=== PATIENT | female | born 1985 | race Caucasian/White ===

== ENCOUNTER 2017-06-14 10:05 | Emergency (ER) | payer OTHER ==
[~2017-06-14] VITALS: Ht 170.2 cm; Wt 94.1 kg
[~2017-06-14 10:05] MED LIST: EFF75 PO; KLN1X PO; MULT-506 PO; WLLSR150 PO
[2017-06-14 10:16] VITALS: Ht 170.2 cm; Wt 94.1 kg
[2017-06-14] MEDS ORDERED: ACETAMINOPHEN 500 MG TAB PO STA (10:38)
[2017-06-14] MEDS ORDERED: AZITHROMYCIN 250 MG TAB PO ONE (10:45)
--- NOTE | 2017-06-14 11:16 | DIAGNOSTIC IMAGING REPORT ---
CHEST ONE VIEW PORTABLE CLINICAL HISTORY: CHEST PAIN dyspnea COMPARISON STUDY: 09/23/2011 FINDINGS: The bones soft tissues and hemidiaphragms are normal. The cardiomediastinal silhouette is normal. The lungs are clear. The pulmonary vasculature is normal. IMPRESSION: Negative chest. The above report was generated using voice recognition software. It may contain grammatical, syntax or spelling errors. Electronically signed by: Mike Sanderson M.D. 06/14/2017 11:15 AM Dictated Date/Time: 06/14/2017 11:15 AM
--- NOTE | 2017-06-14 11:30 | EMERGENCY ROOM VISIT NOTE ---
History Report prepared by Ellis: Alise Macias Under the Supervision of: Dr. Jensen Gallagher M.D. First contact with patient: 10:24 Chief Complaint: COUGH Stated Complaint: PERTUSSIS History of Present Illness The patient is a 31 year old female who presents to the Emergency Room with complaints of an intermittent cough for the past 3 days. The patient's son has been sick with similar symptoms. He was seen in the ER at [facility] 4 days ago. Today the patient received a phone call that he had tested positive for pertussis. She was instructed to remove all of her children from school and have them evaluated. The patient states that she has had an intermittent, non- productive cough for the past 3 days. She reports burning and stinging pain in her lungs, even when she is not coughing. She used her son's nebulizer this morning and that helped to alleviate some of her discomfort. She rates her current pain as a 6/10 in severity. The patient has history of asthma. She is currently experiencing a fever, headache, and sore throat. She feels dehydrated. She was never immunized for pertussis because she was allergic to the vaccination. All of her children have been immunized. The patient denies vomiting, diarrhea, and chance of . Source of History: patient Onset: 3 days ago Position: chest (respiratory) Symptom Intensity: 6/10 Quality: other (non-productive cough) Timing: intermittent Modifying Factors (Relieving): other (nebulizer) Associated Symptoms: + fevers, + headache, + sorethroat, No vomiting, No diarrhea Review of Systems See HPI for pertinent positives & negatives. A total of 10 systems reviewed and were otherwise negative. Past Medical & Surgical Medical Problems: (1) Asthma (2) Bronchitis (3) CVA (4) Migraine Old medical records were reviewed. Nurse's notes were reviewed and I agree with. Family History No pertinent history stated. Social History Smoking Status: Former Smoker Alcohol Use: none Drug Use: none Marital Status: Housing Status: lives with family Occupation Status: unemployed Current/Historical Medications Scheduled Azithromycin (Zithromax Z-Jamey), 0 PO UD Bupropion HCl (Bupropion HCl Sr), 150 MG PO BID Clonazepam (Clonazepam), 1 MG PO BID Methylprednisolone (Medrol Dosepak), 0 PO DAILY Multivitamin (Multivitamin), 1 TAB PO QAM Venlafaxine Hcl (Effexor), 75 MG PO BID Allergies Coded Allergies: Cinnamedrine (Verified Allergy, Unknown, HIVES, runny eyes, 05/03/16) Physical Exam Vital Signs Date Time Temp Pulse Resp B/P (MAP) Pulse Ox O2 Delivery O2 Flow Rate FiO2 06/14/17 12:00 37.4 86 22 130/87 98 06/14/17 10:26 97 Room Air 06/14/17 10:16 37.9 92 20 126/91 98 Room Air Physical Exam General: Well developed well nourished non toxic, mildly ill appearing young female with an occasional cough, in no acute distress, breathing comfortably on room air. Normal speech HEENT: Normal cephalic atraumatic. Pupils are equal round and reactive to light. Extraocular movements are intact. Oropharynx is pink with moist mucous membranes. No swelling of the mouth lips or tongue. Neck: Supple with a midline trachea. No meningeal signs or stiffness, no JVD or bruits. No Stridor. Chest: Coarse breath sounds bilaterally. No wheezes or rhonchi. No increased work of breathing. Heart: regular rate and rhythm. Abdomen: Soft nontender, nondistended without rebound guarding or rigidity. Extremities: No cyanosis clubbing or edema. No calf tenderness or assymetry Spine/Back. Non tender to palpation. No CVA tenderness Skin: Good turgor without rashes. Mildly diaphoretic and warm. Neurologic exam: Cranial nerves two through 12 are intact. Motor and sensation are intact and symmetrical throughout. Medical Decision & Procedures ER Provider Diagnostic Interpretation: Radiology results as stated below per my review and radiologist interpretation: CHEST ONE VIEW PORTABLE CLINICAL HISTORY: CHEST PAIN dyspnea COMPARISON STUDY: 09/23/2011 FINDINGS: The bones soft tissues and hemidiaphragms are normal. The cardiomediastinal silhouette is normal. The lungs are clear. The pulmonary vasculature is normal. IMPRESSION: Negative chest. The above report was generated using voice recognition software. It may contain grammatical, syntax or spelling errors. Electronically signed by: Mike Sanderson M.D. 06/14/2017 11:15 AM Dictated Date/Time: 06/14/2017 11:15 AM Medications Administered Medications (Trade) Dose Ordered Sig/Neida Route Start Time Stop Time Status Last Admin Dose Admin Acetaminophen (Tylenol Tab) 1,000 mg NOW STAT PO 06/14/17 10:38 06/14/17 10:40 DC 06/14/17 11:10 1,000 MG Azithromycin (Zithromax Tab) 500 mg NOW ONCE PO 06/14/17 10:45 06/14/17 10:46 DC 06/14/17 11:10 500 MG ED Course 1024: Past medical records reviewed. The patient was evaluated in room C1B, and a complete history and physical examination were performed. 1038: Tylenol 1000 mg PO 1045: Azithromycin 500 mg PO 1140: I reassessed the patient at this time. She is feeling better and resting comfortably. I discussed the results and treatment plan with the patient. I answered all pertaining questions that she had. She expressed understanding and verbalized agreement. The patient will be discharged home. Medical Decision Differential diagnoses includes pertussis, pneumonia, bronchitis, asthma exacerbation, cardiac disease. This patient comes in as described above. She's had a cough and bronchitis/URI type symptoms this may be exacerbating her asthma. Her breath sounds slightly coarse. She does feel warm she was given acetaminophen by mouth . Chest x-ray was clear and does not show any infiltrates . She's not hypoxemic. Her son is being treated for pertussis. I will treat her with azithromycin to cover pertussis as well. She was also given a prescription for a Medrol Dosepak that will help with her asthma and she has albuterol nebulizer that she can use at home. She feels comfortable like to go home. She does likely have pertussis and should stay home until she completes antibiotic course and feeling well. She was happy with plan and discharged to home. She should follow-up with her regular doctor this week for recheck if symptoms worsen or she is not any better. Medication Reconcilliation Current Medication List: was personally reviewed by me Blood Pressure Screening Patient's blood pressure: Normal blood pressure Impression Primary Impression: Pertussis Additional Impressions: Asthma Acute bronchitis Scribe Attestation The scribe's documentation has been prepared under my direction and personally reviewed by me in its entirety. I confirm that the note above accurately reflects all work, treatment, procedures, and medical decision making performed by me. Departure Information Dispostion Home / Self-Care Prescriptions Methylprednisolone (MEDROL DOSEPAK) 4 Mg Jamey 0 PO DAILY, #1 PKT Prov: Jensen Gallagher M.D. 06/14/17 Azithromycin (ZITHROMAX Z-JAMEY) 250 Mg Tab 0 PO UD, #1 PKT Prov: Jensen Gallagher M.D. 06/14/17 Referrals No Doctor, Assigned (PCP) Forms HOME CARE DOCUMENTATION FORM, IMPORTANT VISIT INFORMATION Patient Instructions My [facility] Additional Instructions Rest. Use albuterol nebulizer at home if needed for your asthma Use Medrol Dosepak as directed steroid Use azithromycin as directedantibiotic Stay at home and limit year exposure to others until you complete your antibiotic course and feeling better Return to ER if: Worsening symptoms, any new problems or concerns. Problem Qualifiers
[2017-06-14] MEDS ORDERED: AZITTAB PO (11:43)
[2017-06-14] MEDS ORDERED: METH4PAK PO (11:43)
[2017-06-14 12:00] VITALS: BP 130/87; PULSE 86; TEMP 37.4; O2SAT 98
== END 2017-06-14 12:02 | disposition home or self-care (01) ==
LOC: C.EDB 10:11 → C.EDC 12:02
DX: A37.90 Whooping cough, unspecified species without pneumonia (principal); J45.909 Unspecified asthma, uncomplicated; J20.9 Acute bronchitis, unspecified; Z86.73 Personal history of transient ischemic attack (TIA), and cerebral infarction without residual deficits; Z87.891 Personal history of nicotine dependence; Z79.899 Other long term (current) drug therapy

== ENCOUNTER 2017-09-25 17:34 | Observation (INO) | payer OTHER ==
[~2017-09-25] VITALS: Ht 170.2 cm; Wt 93.3 kg
[2017-09-25] MEDS ORDERED: ONDANSETRON INJ 2 MG/ML 2 ML VIAL IV STA ×2 (18:15→19:50)
[2017-09-25] MEDS ORDERED: HYDROmorphone INJ 1 MG/ML SYR IV STA (18:15)
[2017-09-25 18:46] LABS: BASO % 0.4 %; BASO ABS # 0.05 K/uL (0-0.2); EOS ABS # 0.13 K/uL (0-0.5); HEMATOCRIT 39.5 % (37-47); HEMOGLOBIN 13.4 g/dL (12.0-16.0); IG# 0.04 K/uL (0.00-0.02); LYMPH % 27.8 %; LYMPH ABS # 3.55 K/uL (1.2-3.4); MEAN CELL VOLUME 83.9 fL (80-100); MEAN CORPUSCULAR HEMOGLOBIN 28.5 pg (25-34); MEAN CORPUSCULAR HGB CONC 33.9 g/dl (32-36); MEAN PLATELET VOLUME 9.3 fL (7.4-10.4); MONO % 6.5 %; MONO ABS # 0.83 K/uL (0.11-0.59); NEUT ABS # 8.19 K/uL (1.4-6.5); PLATELET COUNT 352 K/uL (130-400); RED CELL DISTRIBUTION WIDTH SD 39.3 fL (36.4-46.3); WHITE BLOOD COUNT 12.79 K/uL (4.8-10.8)
[2017-09-25] MEDS ORDERED: CLONAZEPAM 0.5 MG TAB PO STA (19:32)
--- NOTE | 2017-09-25 21:19 | DIAGNOSTIC IMAGING REPORT ---
MRI OF THE LUMBAR SPINE WITHOUT CONTRAST CLINICAL HISTORY: Severe lumbar pain with bilateral radiculopathy. COMPARISON STUDY: Lumbar spine MRI April 19, 2016. TECHNIQUE: Utilizing a 1.5 Kari magnet and dedicated coil, multiplanar, multiecho imaging of the lumbar spine was performed without IV contrast. FINDINGS: For purposes of numbering on this exam, the L5-S1 disc space is assigned to axial image 28 of 30. Alignment of the lumbar spine is anatomic. Vertebral body heights are maintained. There is no intracanalicular mass or fluid collection. The conus terminates at the upper L2 level. Paravertebral soft tissues are unremarkable. There is evidence for a discectomy at the L5-S1 level as well as a laminectomy at this level. L1-2: The central canal and neural foramen are patent. L2-3: The central canal and neural foramen are patent. L3-4: The central canal and neural foramen are patent. L4-5: The central canal and neural foramen are patent. L5-S1: The patient is status post discectomy and laminectomy at this level. Note is made of a disc bulge with small central disc protrusion. In addition, there is a T2 hyperintense adjacent abnormality within the anterior epidural space that measures 0.9 x 0.4 x 0.8 cm. This suggests disc material. The amount of disc material is greatly diminished when compared to preoperative MRI of April 19, 2016. This is suboptimally assessed on this unenhanced exam. There is mild to moderate narrowing of the central canal and lateral recesses with minimal narrowing of both neural foramen at this level. IMPRESSION: 1. Status post L5-S1 discectomy and laminectomy. Disc bulge at this level with small central disc protrusion and adjacent 9 x 4 x 8 mm T2 hyperintense anterior extradural abnormality. This suggests small recurrent/residual disc extrusion with mild to moderate narrowing of the central canal and lateral recesses. Amount of disc material greatly diminished when compared to preoperative MRI of April 19, 2016. Postsurgical scar could appear similar although is considered less likely. 2. Otherwise, normal MRI of the lumbar spine with no additional disc herniations. Electronically signed by: Gabriele Min M.D. 09/25/2017 9:18 PM Dictated Date/Time: 09/25/2017 9:07 PM
[2017-09-25] MEDS ORDERED: HYDROmorphone INJ 0.5 MG/0.5 ML SYR IV STA (21:26)
[2017-09-25 22:21] LABS: ALBUMIN 3.6 gm/dl (3.4-5.0); CALCIUM 9.3 mg/dl (8.5-10.1); CREATININE 0.64 mg/dl (0.60-1.20); POTASSIUM 3.7 mmol/L (3.5-5.1)
[2017-09-25 22:24] LABS: TOTAL PROTEIN 7.7 gm/dl (6.4-8.2)
[2017-09-25] MEDS ORDERED: VENLAFAXINE HCL 50 MG TAB PO ONE (22:40)
[2017-09-25] MEDS ORDERED: BuPROPion SR 150 MG TABCR PO ONE (22:40)
[2017-09-25] MEDS ORDERED: hydrOXYzine HCL 10 MG TAB PO PRN (22:45)
[2017-09-25] MEDS ORDERED: IV FLUIDS COMPLETED PRN (22:45)
[2017-09-25] MEDS ORDERED: MoRPHine SULFATE 4 MG/ML 1 ML CARP\\VIAL IV PRN (22:45)
[2017-09-25] MEDS ORDERED: IBUPROFEN 200 MG TAB PO PRN (22:45)
[2017-09-25] MEDS ORDERED: CYCLOBENZAPRINE HCL 10 MG TAB PO PRN (22:45)
[2017-09-25] MEDS ORDERED: TRAMADOL HCL 50 MG TAB PO PRN (22:45)
[2017-09-25] MEDS ORDERED: KETOROLAC TROMETHAMINE 30 MG/ML VIAL IV PRN (22:45)
[2017-09-25] MEDS ORDERED: PROCHLORPERAZINE INJ 5 MG in SYRINGE 4 ML IV PRN (22:45)
[2017-09-25] MEDS ORDERED: COUGH DROP (SUGAR FREE) LOZ 24 LOZ/1 BOX PO PRN (22:45)
[2017-09-25 23:10] VITALS: BP 120/79; PULSE 66; TEMP 36.4; O2SAT 92; Ht 170.2 cm; Wt 93.3 kg
--- NOTE | 2017-09-25 23:21 | EMERGENCY ROOM VISIT NOTE ---
ED Visit Note First contact with patient: 17:49 Chief Complaint: Back pain and strep throat. History of Present Illness: Ms. Gordon is a 31-year-old white female who ambulates into the ED complaining of severe lumbar back pain and possible strep throat. Historically patient reports in April 2016 she had back surgery; medical records shows that Dr. Montilla performed a L5-S1 discectomy, foraminotomy and laminectomy for a large disc herniation. Patient reports since her surgery in 2015 she has had no complications or recurrence of pain. Patient reports that last week she started developing symptoms of sinus congestion and sore throat. She reports this felt like episodes of streptococcal pharyngitis that she had in the past. These were associated with fevers. She reports her fevers have resolved after the first few days but she is experiencing throat pain. She does not describe or rate her throat pain. She does report it worsens with swallowing. She has not identified any alleviating factors related to the pain. She has not taken medications for pain prior to arrival at the hospital. She denies any voice changes, inability to swallow, painful talking, drooling, neck pain/stiffness, decreased appetite, nausea/vomiting, skin eruptions, skin color changes. Patient goes on the report approximately 3 days ago she started having severe lumbar back pain. She felt this back pain was similar to her previous disc herniation. Since that time her pain has been constant. She places her discomfort throughout the lumbar spine with prominence in the L5-S1 area and the sacroiliac joints. There is prominence on the right. She describes her pain as a sharp sensation. She currently rates her discomfort 8/10. Her pain is radiating into both buttocks and down both posterior aspects of the legs. Her pain worsens with palpation of the lumbar spine, any movement at the waist and positional changes from the standing to the sitting, the sitting to lying positions. Associated with her pain she reports that both legs feel weak and that while walking she feels like she could fall at any time. She denies recent direct or repetitive trauma, thoracic back pain, abdominal pain, nausea, vomiting, diarrhea, constipation, rectal bleeding, black/tarry stools, urinary symptoms, hematuria, bowel and bladder dysfunction, genital paresthesias, extremity numbness/tingling. Review of Systems: As noted above in history of present illness. All body systems were reviewed and found to be negative as noted above. Past Medical History: As previously noted and cerebral hemangioma with TIA, asthma, anxiety, status post D&C. Current Medications: Multivitamins, Effexor, Clonazepam, Bupropion. Allergies to Medications: Cinnamedrine. Social History: Patient is not employed; she feels safe in her home environment ; she denies tobacco and alcohol use. Physical Examination: Vital Signs: Date Time Temp Pulse Resp B/P (MAP) Pulse Ox O2 Delivery O2 Flow Rate FiO2 09/25/17 22:11 57 20 118/61 96 Room Air 09/25/17 21:14 65 20 116/64 97 Room Air 09/25/17 19:55 60 18 116/70 99 Room Air 09/25/17 18:45 66 117/78 96 Room Air 09/25/17 17:38 36.9 79 20 130/79 97 Room Air GENERAL: 31-year-old female in severe distress due to pain, nontoxic-appearing, afebrile and hemodynamically stable. She is found standing with her knees locked leaning against the wall. She is very anxious and tearful. NEUROLOGICAL: Awake, alert and oriented to person, place and time. Answering questions appropriately and following commands. Good hand eye coordination. SKIN: Warm, dry and pink. No soft tissue eruptions or trauma noted. HEENT: Atraumatic and normocephalic. No tenderness or erythema over the frontal or maxillary sinuses. External ears are nontender. Auditory canals are pink and patent. Right tympanic membrane is not erythematous or edematous. Left tympanic membrane is not visualized due to cerumen. PERRLA. Sclera white and conjunctiva pink without drainage. No drainage from naris without audible congestion. Oral cavity moist and pink. Airway patent. Uvula is midline. Pharynx is normal erythematous and not edematous. No tonsillar hypertrophy or exudates. Speech normal and clear. No lymphadenopathy. Trachea midline. No jugular venous distention. No laryngeal tenderness. BACK: No tenderness over the bony cervical and thoracic spine. Moderate to severe tenderness throughout the lumbar spinae bony processes. I did not appreciate any bony crepitus, swelling, ecchymosis or step-offs. Moderate tenderness throughout the lumbar paraspinous musculature predominantly around the L4-L5 area. Questionable muscle spasm. Moderate tenderness throughout the sacroiliac joints bilaterally. Once again there is no bony deformity, crepitus , erythema or edema. She refused to do range of motion exercises due to pain. Unable to perform a straight leg test due to her pain. No CVA tenderness. THORAX: Lungs sounds are clear to auscultation and equal bilaterally with symmetrical chest wall. ABDOMEN: Flat, soft and nontender. Positive bowel sounds in all quadrants. No guarding, rigidity or organomegaly. LOWER EXTREMITIES: Moves extremities well on command and with purpose. Unable to perform muscle strength staying at the level of the hip or the knee due to pain. She does have 4/5 muscle strength bilaterally at the ankle and the great toes. Patellar deep tendon reflexes are hyperactive without clonus. Achilles deep tendon reflexes 2+ without clonus. She was able to distinguish light sensations through all dermatomes of the lower legs and feet. No calf tenderness or cords. ED Course: Patient is assessed as noted above. Patient's medication list was reviewed. Laboratory Testing: Test 09/25/17 18:30 Range/Units White Blood Count 12.79 4.8-10.8 K/uL Red Blood Count 4.71 4.2-5.4 M/uL Hemoglobin 13.4 12.0-16.0 g/dL Hematocrit 39.5 37-47 % Mean Corpuscular Volume 83.9 80-100 fL Mean Corpuscular Hemoglobin 28.5 25-34 pg Mean Corpuscular Hemoglobin Concent 33.9 32-36 g/dl Platelet Count 352 130-400 K/uL Mean Platelet Volume 9.3 7.4-10.4 fL Neutrophils (%) (Auto) 64.0 % Lymphocytes (%) (Auto) 27.8 % Monocytes (%) (Auto) 6.5 % Eosinophils (%) (Auto) 1.0 % Basophils (%) (Auto) 0.4 % Neutrophils # (Auto) 8.19 1.4-6.5 K/uL Lymphocytes # (Auto) 3.55 1.2-3.4 K/uL Monocytes # (Auto) 0.83 0.11-0.59 K/uL Eosinophils # (Auto) 0.13 0-0.5 K/uL Basophils # (Auto) 0.05 0-0.2 K/uL RDW Standard Deviation 39.3 36.4-46.3 fL RDW Coefficient of Variation 13.0 11.5-14.5 % Immature Granulocyte % (Auto) 0.3 % Immature Granulocyte # (Auto) 0.04 0.00-0.02 K/uL Sodium Level 137 136-145 mmol/L Potassium Level 3.7 3.5-5.1 mmol/L Chloride Level 102 98-107 mmol/L Carbon Dioxide Level 28 21-32 mmol/L Anion Gap 7.0 3-11 mmol/L Blood Urea Nitrogen 10 7-18 mg/dl Creatinine 0.64 0.60-1.20 mg/dl Est Creatinine Clear Calc Drug Dose 147.5 ml/min Estimated GFR () 137.8 Estimated GFR (Non- 118.9 BUN/Creatinine Ratio 16.2 10-20 Random Glucose 82 70-99 mg/dl Calcium Level 9.3 8.5-10.1 mg/dl Magnesium Level 1.9 1.8-2.4 mg/dl Total Bilirubin 0.2 0.2-1 mg/dl Aspartate Amino Transf (AST/SGOT) 20 15-37 U/L Alanine Aminotransferase (ALT/SGPT) 20 12-78 U/L Alkaline Phosphatase 73 45-117 U/L Total Protein 7.7 6.4-8.2 gm/dl Albumin 3.6 3.4-5.0 gm/dl Globulin 4.1 2.5-4.0 gm/dl Albumin/Globulin Ratio 0.9 0.9-2 09/25/17 Group A Streptococcus Screen: Negative. Culture pending. Noncontrast MRI of the Lumbar Spine: Was reviewed by myself and read by the radiologist showing status post L5-S1 discectomy and laminectomy. Bulging disc at this level with small central disc protrusion and adjacent 9 x 4 x 8 mm T2 hyperintense anterior epidural abnormality suggesting small recurrent/residual disc extrusion with mild to moderate narrowing of the central canal and lateral recesses. An IV lock was initiated and she received a total of 1.5 mg of Dilaudid IV for pain, a total of 8 mg of morphine IV for nausea and 0.5 clonazepam for anxiety. A she was reassessed multiple times during her stay in the emergency department. I did have a lengthy conversation with this patient concerning her MRI findings and reviewed her treatment choices which were to go home on oral pain medications with follow-up or stay in the ED for pain control and evaluation by licensing specialist. She reports she wanted to go home from the hospital but when she talk to her it was felt that she would be best served by a observation stay. Patient's case was consulted with case management and Dr. Solano, [facility] hospitalist; for medical observation. Patient's case was reviewed with Dr. Morgan; we agreed on diagnostic approach, treatment, disposition and plan. A she was educated about today's findings. Clinical Impression: Retractable lumbar back pain. Disposition and Plan: Patient to be brought into the hospital for observation by Dr. Solano; please see his notes and orders for final disposition and plan.
[2017-09-25] MEDS ORDERED: LIDODERM (LIDOCAINE) PATCH 5% TD ONE (23:30)
[2017-09-25] MEDS ORDERED: NSS + 20MEQ KCL 1000ML 1,000 ML IV ONE (23:30)
[2017-09-25] MEDS ORDERED: CLONAZEPAM 1 MG TAB PO PRN (23:45)
--- NOTE | 2017-09-26 00:55 | HISTORY & PHYSICAL EXAMINATION ---
DATE OF ADMISSION: 09/25/2017 PRIMARY CARE PHYSICIAN: Dr. Torres. CHIEF COMPLAINT: Back pain. HISTORY OF PRESENT ILLNESS: History obtained from patient and records. 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 Patient totally pain free after surgery. A few days ago patient noted low back pain, achy, worse with walking. No trauma recollection. Yesterday, patient noted radiation to both lower extremities, more on the right, leg feeling weak, would buckle out, usual urinary incontinence symptoms. Intractable pain at the Emergency Room. MEDICAL HISTORY: As above. No recent followup with her neurosurgeon who had since left down for brain tumor, no headache symptoms though. SURGERIES: Appendectomy, gynecologic procedures. HOME MEDICATIONS: Include Klonopin p.r.n. spasm, Effexor twice a day, Wellbutrin-SR twice a day. ALLERGIES: MIDOL. FAMILY HISTORY: Mood disorder. PERSONAL AND SOCIAL HISTORY: Past tobacco abuse. No chronic alcoholic beverages intake. Currently on disability. REVIEW OF SYSTEMS: As per HPI. Sore throat since the last few days. Mood not the best. Denies suicidality. All other ROS negative. PHYSICAL EXAMINATION: VITAL SIGNS: Blood pressure was noted to be 116/60, pulse rate 65, RR 18, temperature 37 O2 sats 98RA. GENERAL: Obese, slightly uncomfortable. Occasional tearfulness. No respiratory distress. SKIN: Normal color, warm. HEENT: [place] palpebral conjunctivae. No ptosis. Dry mucosa. Minimal pharyngeal congestion. NECK: Short neck. No tenderness. CHEST: CTA. No tenderness. HEART: Regular, rate and rhythm. No murmur. ABDOMEN: Soft, nontender. BACK : tenderness low back. Limited straight leg raise on the right. EXTREMITIES: Minimal LE edema, no tenderness. No other gross deformities. NEUROLOGIC: Coherent. No gross focality except for back exam. LABORATORY DATA: Hemoglobin was noted to be 13.4, hematocrit 39.7, white blood cell count 12, platelets 200. Sodium 136, 3.7, chloride 102, CO2 28, BUN 10, creatinine 0.6, glucose 82. LFTs were all normal. Lumbar spine MRI showed status post L5-S1 discectomy, laminectomy with disc bulge at this level with small central disc protrusion adjacent 9 x 4 x 8 mm T2 hyperintense anterior extradural abnormality suggesting small recurrent residual disc extrusion with mild to moderate narrowing of the central canal lateral recess. Strep screen was negative. ASSESSMENT: 1. Intractable back pain history of back surgery 04/2016. 2. 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 (Not supported by outpatient documentation.) No recent outpatient neurosurgery follow-up. Patient denies headache sx. 3. Bipolar DSO, suboptimal. 4. Past tobacco abuse. 5. Acute viral pharyngitis, no sepsis. PLAN: Observation [facility] analgesia Orthopedics spine consult RE back pain. (Patient known to Dr. Montilla.) Patient to pursue outpatient neurosurgery follow-up at [facility]. Psych consult RE bipolar disorder, suboptimal state - if patient agreeable. Supportive management for viral pharyngitis. DVT prophylaxis, SCDs RE brain tumor Full code. MTDD
[2017-09-26 07:50] VITALS: BP 121/80; PULSE 69; TEMP 36.6; O2SAT 98
[2017-09-26] MEDS ORDERED: BuPROPion SR 150 MG TABCR PO SCH (09:00)
[2017-09-26] MEDS ORDERED: MULTIVITAMIN TAB PO SCH (09:00)
[2017-09-26] MEDS ORDERED: VENLAFAXINE HCL 50 MG TAB PO SCH ×2 (09:00)
--- NOTE | 2017-09-26 12:43 | Progress Note ---
Internal Med Progress Note Date of Service: Sep 26, 2017. Provider Documentation: SUBJECTIVE: Seen and examined at bedside States her back pain is much improved after starting lidocaine patch Still have mild RLE sciatic pain Eager to get discharged No other complaints OBJECTIVE: Vital Signs-as noted below Physical Exam: General Appearance:Moderately built and nourished, no apparent distress Head: normocephalic, Atraumatic Eyes: normal inspection, EOMI, PERRL Neck: supple, Trachea midline Respiratory/Chest: Normal breath sounds, CTA Cardiovascular: S1, S2, No murmur Abdomen/GI:Soft, Non tender, Bowel sounds present Extremities/Musculoskelatal:normal inspection, no edema Neurologic/Psych:AAOX3, grossly no focal neurological deficits Skin: normal color, warm Lab data as noted below. 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 Bipolar Disorder: Continue home meds Past tobacco abuse Acute viral pharyngitis: Rapid Strep Negative DVT Px: SCDs RE brain tumor Disposition: Plan to discharge home today Follow up with your PCP on 10/03/17 at 11:05am Follow up with your Orthopedic surgeon in 2 weeks as advised Seek immediate medical attention if your symptoms reoccur or worsen Vital Signs: Date Time Temp Pulse Resp B/P (MAP) Pulse Ox O2 Delivery O2 Flow Rate FiO2 09/26/17 08:00 Room Air 09/26/17 07:50 36.6 69 20 121/80 (94) 98 Room Air 09/26/17 04:00 Room Air 09/25/17 23:10 36.4 66 18 120/79 92 Room Air 09/25/17 22:11 57 20 118/61 96 Room Air 09/25/17 21:14 65 20 116/64 97 Room Air 09/25/17 19:55 60 18 116/70 99 Room Air 09/25/17 18:45 66 117/78 96 Room Air 09/25/17 17:38 36.9 79 20 130/79 97 Room Air Lab Results: Results Past 24 Hours Test 09/25/17 18:30 09/26/17 13:32 Range/Units White Blood Count 12.79 4.8-10.8 K/uL Red Blood Count 4.71 4.2-5.4 M/uL Hemoglobin 13.4 12.0-16.0 g/dL Hematocrit 39.5 37-47 % Mean Corpuscular Volume 83.9 80-100 fL Mean Corpuscular Hemoglobin 28.5 25-34 pg Mean Corpuscular Hemoglobin Concent 33.9 32-36 g/dl Platelet Count 352 130-400 K/uL Mean Platelet Volume 9.3 7.4-10.4 fL Neutrophils (%) (Auto) 64.0 % Lymphocytes (%) (Auto) 27.8 % Monocytes (%) (Auto) 6.5 % Eosinophils (%) (Auto) 1.0 % Basophils (%) (Auto) 0.4 % Neutrophils # (Auto) 8.19 1.4-6.5 K/uL Lymphocytes # (Auto) 3.55 1.2-3.4 K/uL Monocytes # (Auto) 0.83 0.11-0.59 K/uL Eosinophils # (Auto) 0.13 0-0.5 K/uL Basophils # (Auto) 0.05 0-0.2 K/uL RDW Standard Deviation 39.3 36.4-46.3 fL RDW Coefficient of Variation 13.0 11.5-14.5 % Immature Granulocyte % (Auto) 0.3 % Immature Granulocyte # (Auto) 0.04 0.00-0.02 K/uL Sodium Level 137 136-145 mmol/L Potassium Level 3.7 3.5-5.1 mmol/L Chloride Level 102 98-107 mmol/L Carbon Dioxide Level 28 21-32 mmol/L Anion Gap 7.0 3-11 mmol/L Blood Urea Nitrogen 10 7-18 mg/dl Creatinine 0.64 0.60-1.20 mg/dl Est Creatinine Clear Calc Drug Dose 147.5 ml/min Estimated GFR () 137.8 Estimated GFR (Non- 118.9 BUN/Creatinine Ratio 16.2 10-20 Random Glucose 82 70-99 mg/dl Calcium Level 9.3 8.5-10.1 mg/dl Magnesium Level 1.9 1.8-2.4 mg/dl Total Bilirubin 0.2 0.2-1 mg/dl Aspartate Amino Transf (AST/SGOT) 20 15-37 U/L Alanine Aminotransferase (ALT/SGPT) 20 12-78 U/L Alkaline Phosphatase 73 45-117 U/L Total Protein 7.7 6.4-8.2 gm/dl Albumin 3.6 3.4-5.0 gm/dl Globulin 4.1 2.5-4.0 gm/dl Albumin/Globulin Ratio 0.9 0.9-2 Microbiology Results 09/25/17 Group A Streptococcus Screen - Final, Resulted SPECIMEN NEGATIVE FOR GROUP A BETA ST... 09/25/17 Group A Streptococcus Screen (DEYANIRA) - Preliminary, Resulted NO BETA STREP ISOLATED TO DATE.
--- NOTE | 2017-09-26 13:08 | HISTORY & PHYSICAL EXAMINATION ---
DATE OF ADMISSION: 09/25/2017 CHIEF COMPLAINT: Back pain, buttock and lower extremity difficulty on the right hand side. HISTORY OF PRESENT ILLNESS: Milana is a delightful, she is 31. I remember her in the past. I did lumbar spine discectomy surgery on her and she had nice recovery. She had ____ pain free for a significant amount of time had increasing back, buttock, lower extremity difficulties 4 days ago which then led to her admission on the 25 of september. PAST MEDICAL HISTORY: Positive for mood disorder and a brainstem angioma. PAST SURGICAL HISTORY: Lumbar spine surgery. She also had an appendectomy. HOME MEDICATIONS: Klonopin, Effexor, Wellbutrin. SOCIAL HISTORY: No alcohol use, no tobacco use. REVIEW OF SYSTEMS: Denies any HEENT complaints. Denies blurred vision, double vision. Denies chest pain, shortness of breath, abdominal pain; admits back pain, sacral pain and right lower extremity difficulty. OBJECTIVE: VITAL SIGNS: Stable, blood pressure 116/60, pulse 60. GENERAL: She is alert, oriented, slightly uncomfortable. SKIN: Clean, dry and normal in appearance. HEENT: Normal. CARDIAC: Regular rate and rhythm. ABDOMEN: Soft, nontender. MUSCULOSKELETAL: She has some low back pain. She has mild pain with straight leg raising on the right, negative on the left. She has no edema, tenderness, or weakness. IMAGING DATA: Her MRI scan demonstrates a small bulging disk at L5-S1, evidence of prior surgery, some facet joint hypertrophy. IMPRESSION: Delightful young lady with a bulging disk, not a true herniation, lumbar spine L5-S1. DISPOSITION: Will try to back away from surgical intervention. I think we have a good opportunity to get her better without surgery. I will see her back as an outpatient. I recommend being discharged home with Toradol, may be some methylprednisolone, and mild narcotic and will see her once again back in the office.
[2017-09-26 13:52] VITALS: BP 121/80; PULSE 69; TEMP 36.6; O2SAT 98
[2017-09-26] MEDS ORDERED: LDDP5 TD (13:52)
[2017-09-26] MEDS ORDERED: KETO10TA PO (13:52)
[2017-09-26] MEDS ORDERED: PRED10TA PO (13:52)
--- NOTE | 2017-09-26 13:54 | Discharge Summary ---
Discharge Summary Date of Service Sep 26, 2017. Discharge Summary Admission Date: Sep 25, 2017 at 22:13 Discharge Date: Sep 26, 2017 Discharge Disposition: Home Principal Diagnosis: Back Pain Procedures: MRI L-spine: 1. Status post L5-S1 discectomy and laminectomy. Disc bulge at this level with small central disc protrusion and adjacent 9 x 4 x 8 mm T2 hyperintense anterior extradural abnormality. This suggests small recurrent/residual disc extrusion with mild to moderate narrowing of the central canal and lateral recesses. Amount of disc material greatly diminished when compared to preoperative MRI of April 19, 2016. Postsurgical scar could appear similar although is considered less likely. 2. Otherwise, normal MRI of the lumbar spine with no additional disc herniations. Consultations: Orthopedics Pending Studies/Follow-Up: Follow up with your PCP on 10/03/17 at 11:05am Follow up with your Orthopedic surgeon in 2 weeks as advised Seek immediate medical attention if your symptoms reoccur or worsen Medication Reconciliation New Medications: Ketorolac Tromethamine (Toradol) 10 Mg Tab 10 MG PO TIDM PRN for Pain for 5 Days, #15 TAB Prednisone Tab (Prednisone) 10 Mg Tab 10 MG PO DAILY for 7 Days, #7 TAB Lidocaine (Lidocaine) 1 Patch Tdsy 1 PATCH TD QAM for 7 Days, #7 EA Continued Medications: Bupropion HCl (Bupropion HCl Sr) 150 Mg Tabcr 150 MG PO BID Clonazepam (Clonazepam) 1 Mg Tab 1 MG PO BID Multivitamin (Multivitamin) Tab 1 TAB PO QAM, TAB Venlafaxine Hcl (Effexor) 75 Mg Tab 75 MG PO BID Admission Information HPI (per Admitting provider): CHIEF COMPLAINT: Back pain. HISTORY OF PRESENT ILLNESS: History obtained from patient and records. 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 Patient totally pain free after surgery. A few days ago patient noted low back pain, achy, worse with walking. No trauma recollection. Yesterday, patient noted radiation to both lower extremities, more on the right, leg feeling weak, would buckle out, usual urinary incontinence symptoms. Intractable pain at the Emergency Room. Physical Exam (per Admitting): PHYSICAL EXAMINATION: VITAL SIGNS: Blood pressure was noted to be 116/60, pulse rate 65, RR 18, temperature 37 O2 sats 98RA. GENERAL: Obese, slightly uncomfortable. Occasional tearfulness. No respiratory distress. SKIN: Normal color, warm. HEENT: [place] palpebral conjunctivae. No ptosis. Dry mucosa. Minimal pharyngeal congestion. NECK: Short neck. No tenderness. CHEST: CTA. No tenderness. HEART: Regular, rate and rhythm. No murmur. ABDOMEN: Soft, nontender. BACK : tenderness low back. Limited straight leg raise on the right. EXTREMITIES: Minimal LE edema, no tenderness. No other gross deformities. NEUROLOGIC: Coherent. No gross focality except for back exam. 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 Bipolar Disorder: Continue home meds Past tobacco abuse Acute viral pharyngitis: Rapid Strep Negative DVT Px: SCDs RE brain tumor Disposition: Plan to discharge home today Follow up with your PCP on 10/03/17 at 11:05am Follow up with your Orthopedic surgeon in 2 weeks as advised Seek immediate medical attention if your symptoms reoccur or worsen Total time spent on discharge = This includes examination of the patient, discharge planning, medication reconciliation, and communication with other providers. Discharge Instructions Discharge Instructions Date of Service Sep 26, 2017. Admission Reason for Admission: Back Pain Discharge Discharge Diagnosis / Problem: Back Pain Discharge Goals Goal(s): Decrease discomfort, Improve function Activity Recommendations Activity Limitations: resume your previous activity Exercise/Sports Limitations: as tolerated . Instructions / Follow-Up Instructions / Follow-Up Follow up with your PCP on 10/03/17 at 11:05am Follow up with your Orthopedic surgeon in 2 weeks as advised Seek immediate medical attention if your symptoms reoccur or worsen Current Hospital Diet Patient's current hospital diet: Regular Diet Discharge Diet Recommended Diet: Regular Diet Pending Studies Studies pending at discharge: no Medical Emergencies . Who to Call and When: Medical Emergencies: If at any time you feel your situation is an emergency, please call 911 immediately. . Non-Emergent Contact Non-Emergency issues call your: Primary Care Provider, Surgeon Call Non-Emergent contact if: you have a fever, your pain is not controlled, your pain is worsening, your pain is unusual for you, your pain is concerning you, you have any medication questions Seek immediate medical attention if your symptoms reoccur or worsen . . "Provider Documentation" section prepared by Portillo Fleming. . VTE Core Measure Inpt VTE Proph given/why not?: SCD's <Electronically signed by Portillo Fleming MD> Signed: 09/26/17 [id number] Signed: The status of this report is Signed * If report status is Draft, the document has not been finalized by the responsible provider.
[2017-09-27] MEDS ORDERED: LIDODERM (LIDOCAINE) PATCH 5% TD SCH (09:00)
== END 2017-09-26 14:08 | disposition home or self-care (01) ==
LOC: C.EDB 17:35 → C.MED 22:13 → ENRESERV 22:35
PROVIDERS: ADMIT Internal Medicine; ATTEND Internal Medicine
DX: M54.5 Low back pain (principal); M51.27 Other intervertebral disc displacement, lumbosacral region; J02.9 Acute pharyngitis, unspecified; Z86.73 Personal history of transient ischemic attack (TIA), and cerebral infarction without residual deficits; F31.9 Bipolar disorder, unspecified; Z87.891 Personal history of nicotine dependence; Z79.899 Other long term (current) drug therapy

== ENCOUNTER 2017-09-28 17:17 | Emergency (ER) | payer OTHER ==
[~2017-09-28] VITALS: Ht 170.2 cm; Wt 90.9 kg
[~2017-09-28 17:17] MED LIST changes: +KETO10TA PO; +LDDP5 TD; +PRED10TA PO
[2017-09-28 17:32] VITALS: TEMP 36.7; Ht 170.2 cm; Wt 90.9 kg
[2017-09-28] MEDS ORDERED: MENT5PAD4 (18:14)
[2017-09-28] MEDS ORDERED: HYDROmorphone INJ 0.5 MG/0.5 ML SYR IV STA (18:29)
[2017-09-28] MEDS ORDERED: ACETAMINOPHEN 500 MG TAB PO STA (18:29)
[2017-09-28] MEDS ORDERED: KETOROLAC TROMETHAMINE 30 MG/ML VIAL IV STA (18:29)
[2017-09-28] MEDS ORDERED: DEXAMETHASONE **PF** INJ 10 MG/ML VIAL IV ONE (18:30)
[2017-09-28] MEDS ORDERED: OXYCODONE HCL IR 5 MG TAB (IMMEDIATE RELEASE) PO STA (19:46)
[2017-09-28] MEDS ORDERED: TRAMADOL HCL 50 MG TAB PO STA (19:46)
[2017-09-28] MEDS ORDERED: OXYC1TAB3 PO (20:03)
[2017-09-28] MEDS ORDERED: METH8TAB5 PO (20:03)
--- NOTE | 2017-09-28 20:05 | EMERGENCY ROOM VISIT NOTE ---
History Report prepared by Ellis: Padmaja Mcconnell Under the Supervision of: Dr. Russel Prieto M.D. First contact with patient: 17:22 Chief Complaint: BACK PAIN Stated Complaint: BACK PAIN History of Present Illness The patient is a 31 year old white female with a past medical history of herniated disc, back surgery, sciatica, CVA, migraine, brain stem hemangioma, asthma, depression, appendectomy who presents to the ED with a cc of persistent back pain beginning 6 days ago. The pain is in her bilateral lower back radiating to her hips and down her legs. She is unable to walk because of the pain. She had an MRI 2 days ago which showed disc herniation. Positive tingling in feet, lower abdominal pain. She denies any heavy lifting or strain recently. She admits to trying marijuana for her pain last week to no significant relief. She denies any alcohol or tobacco use. Source of History: patient Onset: 6 days ago Position: back (bilateral, lower) Quality: other (sciatic pain) Timing: other (persistent) Modifying Factors (Worsening): movement Associated Symptoms: + abdominal pain, + numbness Note: Pt reports leg pain. Review of Systems See HPI for pertinent positives and negatives. A total of ten systems were reviewed and were otherwise negative. Past Medical & Surgical Medical Problems: (1) Asthma (2) Back pain (3) Bronchitis (4) CVA (5) Migraine Family History Diabetes mellitus Heart disease Hypertension Social History Smoking Status: Never Smoker Alcohol Use: none Drug Use: none Marital Status: Housing Status: lives with family Occupation Status: unemployed Current/Historical Medications Scheduled Bupropion HCl (Bupropion HCl Sr), 150 MG PO BID Clonazepam (Clonazepam), 1 MG PO BID Methylprednisolone (Methylprednisolone), 1 TAB PO BID Multivitamin (Multivitamin), 1 TAB PO QAM Prednisone Tab (Prednisone), 10 MG PO DAILY Venlafaxine Hcl (Effexor), 75 MG PO BID Scheduled PRN Ketorolac Tromethamine (Toradol), 10 MG PO TIDM PRN for Pain Oxycodone Immediate Rel Tab (Roxicodone Ir), 5 MG PO Q6H PRN for Pain Miscellaneous Medications Menthol (Topical Analgesic) (Icy Hot Patch) Allergies Coded Allergies: Cinnamedrine (Verified Allergy, Unknown, HIVES, runny eyes, 09/25/17) Physical Exam Vital Signs Date Time Temp Pulse Resp B/P (MAP) Pulse Ox O2 Delivery O2 Flow Rate FiO2 09/28/17 20:27 60 16 119/83 97 09/28/17 19:30 60 18 111/78 96 Room Air 09/28/17 18:48 68 20 127/77 97 Room Air 09/28/17 17:32 36.7 76 20 115/76 95 Room Air Physical Exam GENERAL:Obese. Awake, alert, well-appearing, mild distress HENT: Normocephalic, atraumatic. EYES: Normal conjunctiva. Sclera non-icteric. NECK: Supple. No nuchal rigidity. FROM. RESPIRATORY: CTAB, no rhonchi, wheezing, crackles CARDIAC: RRR, no MRG ABDOMEN: Soft, NTND, BS+ MSK: No chest wall TTP, no LE edema. Positive SLR b/l. B/l paraspinal TTP. NEURO: GCS 15, CN 2-12 intact, moves all 4s on command. Tingling over the right thigh and bilateral feet. 4/5 strength with hip flexion secondary to pain. 5/5 strength with knee flexion and extension, plantar flexion, and dorsiflexion b/ l. No saddle anesthesia. SKIN: No rash or jaundice noted. Medical Decision & Procedures Medications Administered Medications (Trade) Dose Ordered Sig/Neida Route Start Time Stop Time Status Last Admin Dose Admin Acetaminophen (Tylenol Tab) 1,000 mg NOW STAT PO 09/28/17 18:29 09/28/17 18:32 DC 09/28/17 18:50 1,000 MG Dexamethasone Sodium Phosphate (Dexamethasone Inj Pf) 10 mg NOW ONCE IV 09/28/17 18:30 09/28/17 18:32 DC 09/28/17 18:51 10 MG Ketorolac Tromethamine (Toradol Inj) 30 mg NOW STAT IV 09/28/17 18:29 09/28/17 18:32 DC 09/28/17 18:52 30 MG Hydromorphone HCl (Dilaudid Inj) 1 mg NOW STAT IV 09/28/17 18:29 09/28/17 18:32 DC 09/28/17 18:52 1 MG Oxycodone HCl (Roxicodone Immediate Rel Tab) 5 mg NOW STAT PO 09/28/17 19:46 09/28/17 19:47 DC 09/28/17 20:27 5 MG Tramadol HCl (Ultram Tab) 50 mg NOW STAT PO 09/28/17 19:46 09/28/17 19:47 DC 09/28/17 20:26 50 MG ED Course 1822: The patient was evaluated in room C8. A complete history and physical exam was performed. 1923: I discussed the patient's case with Dr. Montilla, orthopedic surgery [place] [facility] orthopedics. He recommends a strong push of steroids and follow up as an outpatient. 1930: I reevaluated the patient. Discussed results and discharge instructions: She verbalized understanding and agreement. The patient is ready for discharge. Medical Decision The patient is a 31 year old white female with a past medical history of herniated disc, back surgery, sciatica, CVA, migraine, brain stem hemangioma, asthma, depression, appendectomy who presents to the ED with a cc of persistent back pain beginning 6 days ago. Differential diagnosis: Etiologies such as musculoskeletal, disc herniation, fracture, aortic disease, metastatic disease, cord compression, discitis, infection, renal colic, gastrointestinal, acute exacerbation of chronic back pain, sciatica, cauda equina, as well as others were entertained. Patient was seen and evaluated the bedside. Patient had complained of worsening low back pain with sciatica-type symptoms. Of note per the EMR the patient was recently seen in and admitted for an abnormal MRI. This was reviewed by the hospitalist and spinal specialist during admission. On exam the patient did complain of some tingling over the right thigh and bilateral feet. Patient did not have any bowel or bladder incontinence and the patient did not have any saddle anesthesia. Patient denies any fevers and does not have any other high risk red flag signs for back pain. Given the patient's recent admission with blood work and advanced imaging patient was given medication to help with pain control. I did discuss the patient with the spinal specialist who is tongue carrier and who had reviewed the patient's MRI during her recent admission. He recommended methylprednisolone in addition to pain medications. Patient was to follow up Tuesday in his clinic. I did discuss this with the case supervisor who is to arrange an appointment for her for Tuesday. Patient was deemed suitable for outpatient follow-up and treatment at this time. As per the above this is why no blood work or further imaging was obtained at this time. Patient was agreeable to this plan of care. Patient was given strict follow-up, discharge, and return precautions. All questions were answered. Patient was deemed suitable for outpatient follow-up at this time. Patient agreed with the plan of care and was safely discharged home. Medication Reconcilliation Current Medication List: was personally reviewed by me Blood Pressure Screening Patient's blood pressure: Normal blood pressure Blood pressure disposition: Did not require urgent referral Consults Time Called: 1919 Consulting Physician: Dr. Montilla, orthopedic surgery [place] [facility] orthopedics Returned Call: 1923 I discussed the patient's case with him. He recommends a strong push of steroids and follow up as an outpatient. Impression Primary Impression: Sciatica Scribe Attestation The scribe's documentation has been prepared under my direction and personally reviewed by me in its entirety. I confirm that the note above accurately reflects all work, treatment, procedures, and medical decision making performed by me. Departure Information Dispostion Home / Self-Care Prescriptions Methylprednisolone (METHYLPREDNISOLONE) 8 Mg Tab 1 TAB PO BID for 2 Days, #4 TAB Prov: Russel Prieto M.D. 09/28/17 Oxycodone Immediate Rel Tab (ROXICODONE IR) 5 Mg Tab 5 MG PO Q6H Y for Pain for 2 Days, #8 TAB Prov: Russel Prieto M.D. 09/28/17 Referrals Claus Torres M.D. (PCP) Patient Instructions Back Pain - [facility], Back Pain Relieve, [facility] Additional Instructions Please return to the emergency department if you have worsening or recurrent symptoms not amenable to at-home treatment. Please call for a follow-up appointment with her primary care physician. Please take your medications as prescribed. If you have other concerns and/or complaints please feel free to also call your primary care physician's office or return the ED for further evaluation, management, and treatment. Please keep her follow-up appointment with your spinal surgeon on Tuesday. If you do take the pain medications he may not take any benzodiazepines as they may cause respiratory depression and breathing problems. They can also make you externally sedated. Please do not take the prednisone that was prescribed for you. Please take the steroids (Medrol) that was prescribed today. It's recommended that you take it with food. You may consider a Pepcid or Zantac as it may cause upset stomach. You received narcotic or benzodiazepene medication while in the emergency room today. This is an addictive medication that may cause drowziness as well as constipation. Do not drive, operate heavy machinery, or drink alcohol under the influence of this medication. You may take 600 mg Ibuprofen every 6 hours as needed for pain with food for no more than 2 consecutive days. You may take tylenol 1000 mg every 6 hours as needed for pain. You may take motrin and tylenol separately or at the same time. You may take the pain medication as we discussed but please only take the tramadol first. If you still have pain in approximately 30-45 minutes you may try taking the narcotic medication. Please be careful with these medications as they can be sedating, cause breathing problems, and the narcotics can be habit forming. You have been examined and treated today on an emergency basis only. This is not a substitute for, or an effort to provide, complete comprehensive medical care. It is impossible to recognize and treat all injuries or illnesses in a single emergency department visit. It is therefore important that you follow up closely with [facility], your PCP, and/or your specialist(s). Call as soon as possible for an appointment. Thank you for your time and consideration. I look forward to speaking with you again soon. Please don't hesitate to call us if you have any questions. Problem Qualifiers Primary Impression: Sciatica Laterality: bilateral Qualified Codes: M54.31 - Sciatica, right side; M54.32 - Sciatica, left side
[2017-09-28] MEDS ORDERED: OXYCODONE IR HOME PACK PO ONE (20:15)
[2017-09-28 20:27] VITALS: BP 119/83; PULSE 60; O2SAT 97
== END 2017-09-28 20:25 | disposition home or self-care (01) ==
LOC: EDBD 17:17 → C.EDC 17:19
DX: M53.3 Sacrococcygeal disorders, not elsewhere classified (principal); J45.909 Unspecified asthma, uncomplicated; Z79.899 Other long term (current) drug therapy; Z88.8 Allergy status to other drugs, medicaments and biological substances; Z83.3 Family history of diabetes mellitus; Z82.49 Family history of ischemic heart disease and other diseases of the circulatory system